=== PATIENT | male | born 1965 | race Caucasian/White ===

== ENCOUNTER 2024-08-07 06:55 | Day surgery (SDC) | payer OTHER ==
[2024-07-29 09:37] VITALS: BP 131/77
[~2024-08-07] VITALS: Ht 175.3 cm; Wt 135.5 kg
[~2024-08-07 06:55] MED LIST: JARDIANCE25 MG PO; LANTUS SOL100 UNIT/1 SUB-Q; LIPITOR10 MG; LISINOPRIL5 MG PO; METFORMIN HCL750 MG PO; MIDAZOLAM HCL 5 MG/5 ML VIAL IV PRN; NAPROXEN250 MG PO; SITAGLIPTIN100 MG PO; ZYRTEC10 MG PO; fentaNYL citrate 100 MCG/2 ML VIAL IV PRN; propofoL 200 MG/20 ML VIAL ONE
[2024-08-07] MEDS ORDERED: LIDOCAINE HCL 1% 5 ML SDV INJ ONE (07:00)
[2024-08-07] MEDS ORDERED: LACTATED RINGER'S 1,000 ML IV SCH (07:00)
[2024-08-07] MEDS ORDERED: IBLOOD GLUCOSE TEST STRIP 1 EA TEST VI PRN (07:00)
[2024-08-07 07:07] VITALS: BP 170/83
[2024-08-07] MEDS ORDERED: LACTATED RINGER'S 1,000 ML IV ONE (08:50)
--- NOTE | 2024-08-07 09:07 | NUR ---
08/07/24 0907 Sheets,Vero 0842 PT ARRIVED TO PACU ON 10L VIA MASK, RESP EVEN AND UNLABORED. PT ASLEEP WITH AIRWAY IN PLACE, PT STARTS COUGHING AND SUCTION USED, SMALL AMOUNT OF CLEAR SPUTUM NOTED. PT EYES REMAIN CLOSED AND PT NONAROUSABLE TO TACILE STIMULI.
[2024-08-07 09:31] VITALS: BP 136/73
--- NOTE | 2024-08-07 12:49 | OR ---
[facility] [address], [place] [address] Signed DATE OF OPERATION: 08/07/2024 SURGEON: Hao Marrero MD PREOPERATIVE DIAGNOSES: 1. Father and brothers x2 with colonic polyps. 2. Personal history of colonic polyps in 2016 at age 50. 3. Chronic constipation following his back injury and medications. POSTOPERATIVE DIAGNOSIS: 4 mm polyp, proximal right colon. PROCEDURE: Colonoscopy with hot biopsy. ESTIMATED BLOOD LOSS: None. INDICATIONS: Clovis is a 58-year-old obese diabetic gentleman, asked to see me for his third colonoscopy. He said his dad and both his brothers have had colonic polyps removed. No one in the family has any colon cancer. He started his colonoscopy was in 2015 at the age of 50. He went to the [facility] in [place], [place]. He is pretty certain he had polyps removed. He was told to follow up in 5 years. In that he had another colonoscopy in 2021 at the age of 55 through the [facility] in [place], [place]. He had 3 mm rectal hyperplastic polyp x2. He had a 3 mm tubular adenomatous polyp removed in the sigmoid colon. He had an 11 mm tubular adenomatous polyp removed of the right colon. Apparently, the prep was suboptimal. He told me he has been constipated since he hurt his back. Apparently, they were telling him to take some MiraLAX over two days. He was also to take some magnesium citrate. He said Dulcolax does nothing for him. They wanted him to return in three years for repeat colonoscopy. In the office, I gave him our pamphlet on colonoscopy. He understands the nature of the test. There is risk including, but not limited to gas bloating, crampy abdominal pain, bleeding, perforation requiring surgery, and missed diagnosis. We also reviewed the written instructions for a bowel prep line by line. He took an entire bottle of magnesium citrate first thing in the morning and did entire gallon of polyethylene glycol throughout the day along with his clear liquid diet. He said that worked out pretty well. In addition, he does have significant obesity, a very round full face, heavy chest and abdomen. He said fentanyl and morphine do nothing for him. They have no affect whatsoever. Consequently, we did ask for monitored anesthesia care Electronically Signed By: HAO MARRERO MD 08/07/24 1249 PATIENT NAME: CLOVIS CORBETT OPERATIVE REPORT DATE OF : 65 REPORT #: [id number] PHYSICIAN: HAO MARRERO MD PCP: NO PRIMARY CARE PHYSICIAN REPORT IS CONFIDENTIAL AND NOT TO BE RELEASED WITHOUT AUTHORIZATION [facility] [address] [place] [id number] Signed propofol infusion. That worked out very well. He did require preoperative blood work and an EKG. He understands an adult person has to take him home afterwards. He said that would likely be his father. He had expressed understanding and wished to proceed. DESCRIPTION OF PROCEDURE: Clovis was taken into the endoscopy suite and placed in the left lateral decubitus position. He was given monitored anesthesia care propofol infusion per the nurse monument letterer. A digital rectal exam was performed. He had no external hemorrhoids. He had good sphincter tone. There were no masses. I could barely touch the bottom of the prostate gland. The adult colonoscope was introduced and advanced under direct visualization of camera without difficulty. His prep was good. We could easily see the cecum and the ileocecal valve. I could not quite see right behind the ileocecal valve. Just in the proximal right colon he had a tiny 4 mm polyp which we removed with a hot biopsy forceps. The rest of the colon was unremarkable. The rectum was unremarkable. Upon retroflexion of scope, there was no additional pathology noted above the anal canal. After this, the gas was suctioned out. The colonoscope removed. Clovis tolerated the procedure quite well. RECOMMENDATIONS: I will see Clovis back in my office in 7 to 14 days to review his results. I suspect he will be on the five year rotation. He will always need a bottle of magnesium citrate at least a full gallon of polyethylene glycol. He should always have monitored anesthesia care. Hao Marrero MD [facility]/MOD[facility] /[id number] cc: [place], [place] Hao Marrero MD Electronically Signed By: HAO MARRERO MD 08/07/24 1249 PATIENT NAME: CLOVIS CORBETT OPERATIVE REPORT DATE OF : 65 REPORT #: [id number] PHYSICIAN: HAO MARRERO MD PCP: NO PRIMARY CARE PHYSICIAN REPORT IS CONFIDENTIAL AND NOT TO BE RELEASED WITHOUT AUTHORIZATION [address] [address] Signed Copies: HAO MARRERO MD ~ Electronically Signed By: HAO MARRERO MD 08/07/24 1249 PATIENT NAME: ADAMCLOVIS W OPERATIVE REPORT DATE OF : 65 REPORT #: [id number] PHYSICIAN: HAO MARRERO MD PCP: NO PRIMARY CARE PHYSICIAN REPORT IS CONFIDENTIAL AND NOT TO BE RELEASED WITHOUT AUTHORIZATION
== END 2024-08-07 09:39 | disposition home or self-care (01) ==
LOC: DS 06:55
PROVIDERS: ATTEND Colon & Rectal Surgery
PROC: 0DBF8ZZ Excision of Right Large Intestine, Via Natural or Artificial Opening Endoscopic (ICD-10-PCS; principal; 2024-08-07 08:05)
DX: Z12.11 Encounter for screening for malignant neoplasm of colon (principal); K63.5 Polyp of colon; K59.09 Other constipation; E66.9 Obesity, unspecified; G89.29 Other chronic pain; Z68.41 Body mass index [BMI] 40.0-44.9, adult; Z83.711 Family history of hyperplastic colon polyps; Z86.0100 Personal history of colon polyps, unspecified; E11.9 Type 2 diabetes mellitus without complications; I10 Essential (primary) hypertension
CPT/HCPCS: 00811; 88305; J2704; J7121